=== PATIENT | male | born 1995 | race Hispanic/Latino ===

== ENCOUNTER → 2018-10-11 | Outpatient (CLI) | payer OTHER | END | disposition home or self-care (01) | LOC: RAH 10:37 → EEVIPCON 10:37 | PROVIDERS: ATTEND Internal Medicine | DX: M17.12 Unilateral primary osteoarthritis, left knee (principal); M25.462 Effusion, left knee; M25.632 Stiffness of left wrist, not elsewhere classified | CPT/HCPCS: 73562 ==